=== PATIENT | male | born 1995 | race Two or more races ===

== ENCOUNTER 2016-11-16 16:22 | Emergency (ER) | payer MEDICAID ==
[~2016-11-16] VITALS: Ht 165.1 cm; Wt 68.0 kg
[~2016-11-16 16:22] MED LIST: ALBU0.084; ALBU0.5N2 NEB; ALBUPOW26; AZITTAB11 PO; METH4PAK PO; PULMACORT
[2016-11-16 17:08] VITALS: BP 138/97
[2016-11-16] MEDS ORDERED: ALUM & MAG HYDROX-SIMETH LIQ(MAALOX) 30 ML PO ONE (18:30)
== END 2016-11-16 19:05 | disposition home or self-care (01) ==
LOC: EDBD 16:22 → ER 16:24
DX: T17.928A Food in respiratory tract, part unspecified causing other injury, initial encounter (principal); J45.909 Unspecified asthma, uncomplicated; X58.XXXA Exposure to other specified factors, initial encounter; Y93.89 Activity, other specified; Y92.89 Other specified places as the place of occurrence of the external cause; Y99.8 Other external cause status
CPT/HCPCS: 71020